=== PATIENT | female | born 1970 | race Caucasian/White ===

== ENCOUNTER 2019-04-10 14:53 | Observation (INO) ==
[2019-04-10 17:25] LABS: Basophils % 0.3 %; Immature Granulocytes % 0.5 % (0-4); Red Cell Distribution Width 18.3 % (11.5-14.5)
[2019-04-10 17:27] LABS: Eosinophils # 0.1 K/mcL (0.0-0.6); Eosinophils % 0.8 %; Hematocrit 33.8 % (35.3-44.9); Hemoglobin 9.4 g/dL (11.5-15.4); Lymphocytes # 0.8 K/mcL (0.6-4.6); Lymphocytes % 11.6 %; Mean Corpuscular HGB Conc 27.8 g/dL (31.6-35.5); Mean Corpuscular Hemoglobin 21.8 pg (28.0-33.3); Mean Corpuscular Volume 78.4 fL (83.0-100.0); Mean Platelet Volume 10.3 fL (9.4-12.4); Monocytes # 0.5 K/mcL (0.0-1.3); Monocytes % 7.1 %; Neutrophils # 5.2 K/mcL (1.6-8.9); Platelet Count 191 K/mcL (140-400); Red Blood Count 4.31 M/mcL (3.82-4.97); Segmented Neutrophils % 79.7 %; White Blood Count 6.5 K/mcL (4.3-11.1)
[2019-04-10 17:40] LABS: BUN/Creatinine Ratio 18 (6-26); Blood Urea Nitrogen 14 mg/dL (6-20); Calcium 9.3 mg/dL (8.6-10.3); Carbon Dioxide 21 mEq/L (23-29); Chloride 110 mEq/L (98-107); Glucose 302 mg/dL (70-105); Osmolality,Calculated 300 (280-300); Potassium 4.8 mEq/L (3.5-5.1); Sodium 139 mEq/L (136-145); eGFR For African Americans > 60 (> 60); eGFR For Non-African Americans > 60 (> 60)
[2019-04-10] MEDS ORDERED: Piperacillin/Tazobactam 3.375 GM in 0.9 % Sodium Chloride Mini Bag 100 ML IVPB ONE (19:42)
[2019-04-10] MEDS ORDERED: *HR* HYDROcodone/Acet 5/325 mg TABLET PO ONE (20:12)
[2019-04-10 21:22] LABS: C-Reactive Protein 19 mg/L (Less than 10)
[2019-04-11] MEDS ORDERED: Ondansetron ODT 4 MG TAB.RAPDIS SL PRN (00:22)
[2019-04-11] MEDS: traZODone 50 MG TABLET PO SCH ×2 (01:21→21:04)
[2019-04-11] MEDS: ALPRAZolam 0.5 MG TABLET PO SCH ×4 (01:21→21:05)
[2019-04-11] MEDS: BuPROPion SR (12 HR) 100 MG TABLET PO SCH ×3 (01:21→21:05)
[2019-04-11] MEDS ORDERED: Dextrose Gel 15 GM/37.5 ML TUBE PO PRN ×2 (01:36)
[2019-04-11] MEDS ORDERED: Albuterol 2.5 MG/3 ML NEBULIZER IH PRN (01:36)
[2019-04-11] MEDS ORDERED: D5% in Water 1,000 ML IVC PRN (01:36)
[2019-04-11] MEDS ORDERED: *HR* Dextrose 50 % in Water (Syg) 50 ML SYRINGE IVP PRN (01:36)
[2019-04-11] MEDS ORDERED: Naloxone 0.4 MG/ML INJ IVP PRN (01:36)
[2019-04-11] MEDS ORDERED: MethylPREDNISolone 40 MG/ML VIAL IVP ONE (01:38)
[2019-04-11 02:40] LABS: Immature Granulocytes % 0.3 % (0-4)
[2019-04-11 02:41] LABS: Hematocrit 34.9 % (35.3-44.9); Hemoglobin 9.5 g/dL (11.5-15.4); Lymphocytes # 0.2 K/mcL (0.6-4.6); Lymphocytes % 4.7 %; Mean Corpuscular HGB Conc 27.2 g/dL (31.6-35.5); Mean Corpuscular Hemoglobin 22.2 pg (28.0-33.3); Mean Corpuscular Volume 81.5 fL (83.0-100.0); Mean Platelet Volume 9.5 fL (9.4-12.4); Monocytes # 0.1 K/mcL (0.0-1.3); Monocytes % 2.6 %; Neutrophils # 3.1 K/mcL (1.6-8.9); Nucleated Red Blood Cells 0.6 /100 WBC (0); Platelet Count 167 K/mcL (140-400); Red Blood Count 4.28 M/mcL (3.82-4.97); Red Cell Distribution Width 18.4 % (11.5-14.5); Segmented Neutrophils % 92.4 %; White Blood Count 3.4 K/mcL (4.3-11.1)
[2019-04-11 02:48] LABS: INR 1.1; Prothrombin Time 12.2 Seconds (9.4-12.1)
[2019-04-11 03:03] LABS: % Iron Saturation 8 % (15-50); Alanine Aminotransferase 21 Units/L (7-52); Albumin/Globulin Ratio 1.4 (1.1-2.2); Alkaline Phosphatase 79 Units/L (34-104); Aspartate Amino Transferase 17 Units/L (13-39); BUN/Creatinine Ratio 17 (6-26); Bilirubin,Total 0.6 mg/dL (0.3-1.0); Blood Urea Nitrogen 14 mg/dL (6-20); Calcium 9.3 mg/dL (8.6-10.3); Carbon Dioxide 22 mEq/L (23-29); Chloride 110 mEq/L (98-107); Chol/HDL Ratio 2.7 (0-4.9); Cholesterol 105 mg/dL (< 200); Globulin 2.9 g/dL (2.4-3.5); Glucose 161 mg/dL (70-105); HDL Cholesterol 39 mg/dL (40-59); Iron 41 mcg/dL (50-170); LDL Cholesterol,Calculated 26 mg/dL (0-99); Osmolality,Calculated 296 (280-300); Potassium 4.2 mEq/L (3.5-5.1); Sodium 141 mEq/L (136-145); Total Protein 6.9 g/dL (6.4-8.9); Transferrin 357 mg/dL (203-362); Triglycerides 202 mg/dL (< 150); eGFR For African Americans > 60 (> 60); eGFR For Non-African Americans > 60 (> 60)
[2019-04-11 03:18] LABS: Ferritin 17 ng/mL (10-120)
[2019-04-11] MEDS: Ipratropium/Albuterol Neb 3 ML IH SCH ×5 (03:20→22:46)
[2019-04-11 03:36] LABS: Platelet Estimate Normal (Normal)
[2019-04-11 04:39] LABS: ABG Base Excess -4 mEq/L (-2 to 3); ABG HCO3 21 mEq/L (21-27); ABG Oxygen Saturation 98 % (95-98); ABG PCO2 38 mmHg (35-45); ABG PH 7.36 pH Units (7.32-7.45); ABG PO2 102 mmHg (85-104); ABG TCO2 22 mEq/L (20-26)
[2019-04-11] MEDS: Acetaminophen 325 MG TABLET PO PRN (06:47)
[2019-04-11 08:49] LABS: Estimated Average Glucose 258 mg/dl
[2019-04-11] MEDS: predniSONE 20 MG TABLET PO SCH (09:13)
[2019-04-11] MEDS: Insulin LISPRO 300 UNITS/3 ML VIAL SQ SCH ×3 (09:13→17:08)
[2019-04-11] MEDS: Nicotine 14 MG PATCH.TD24 TD SCH (09:14)
[2019-04-11 13:07] LABS: Bilirubin,Urine Small (Negative); Blood,Urine Negative (Negative); Clarity,Urine Cloudy (Clear); Color,Urine Yellow (Yellow); Glucose,Urine (UA) 500 mg/dL (Normal); Ketones,Urine Negative (Negative); Leukocyte Esterase,Urine Negative (Negative); Nitrite,Urine Negative (Negative); PH,Urine 5.5 pH Units (5.0-8.0); Protein,Urine Negative (Neg-Trace); Specific Gravity,Urine 1.027 (1.010-1.025); Urobilinogen,Urine Normal (Normal)
[2019-04-11 13:09] LABS: Bacteria,Urine None Seen per hpf (None-Few); Hyaline Casts,Urine Few per lpf (None-Few); Squamous Epithelial Cell,Urine Many per lpf (None-Few); WBC,Urine 0-3 per hpf (0-3)
[2019-04-12] MEDS: Acetaminophen 325 MG TABLET PO PRN (02:24)
[2019-04-12] MEDS: Ipratropium/Albuterol Neb 3 ML IH SCH ×2 (03:57→11:06)
[2019-04-12 05:54] LABS: Adenovirus Not Detected (Not Detect); Bordetella Pertussis Not Detected (Not Detect); Chlamydophila pneumoniae Not Detected (Not Detect); Coronavirus 229E Not Detected (Not Detect); Coronavirus HKU1 Not Detected (Not Detect); Coronavirus NL63 Not Detected (Not Detect); Coronavirus OC43 Not Detected (Not Detect); Human Metapneumovirus Not Detected (Not Detect); Human Rhinovirus/Enterovirus Not Detected (Not Detect); Influenza A Subtype 2009 H1 Not Detected (Not Detect); Influenza B Not Detected (Not Detect); Mycoplasma pneumoniae Not Detected (Not Detect); Parainfluenza Virus 1 Not Detected (Not Detect); Parainfluenza Virus 2 Not Detected (Not Detect); Parainfluenza Virus 3 Not Detected (Not Detect); Parainfluenza Virus 4 Not Detected (Not Detect); Respiratory Syncytial Virus Not Detected (Not Detect)
[2019-04-12] MEDS ORDERED: Piperacillin/Tazobactam 3.375 GM in 0.9 % Sodium Chloride Mini Bag 100 ML IVPB SCH ×2 (08:41→16:00)
[2019-04-12] MEDS: ALPRAZolam 0.5 MG TABLET PO SCH (09:47)
[2019-04-12] MEDS: predniSONE 20 MG TABLET PO SCH (09:48)
[2019-04-12] MEDS: BuPROPion SR (12 HR) 100 MG TABLET PO SCH (09:48)
[2019-04-12] MEDS: Nicotine 14 MG PATCH.TD24 TD SCH (09:48)
[2019-04-12] MEDS: Insulin LISPRO 300 UNITS/3 ML VIAL SQ SCH ×2 (09:55→12:41)
[2019-04-12] MEDS ORDERED: Albuterol 2.5 MG/3 ML NEBULIZER ONE (11:03)
[2019-04-12 11:48] VITALS: BP 153/67
[2019-04-12] MEDS ORDERED: Aminoglycoside Consult 1 EACH MC ONE (14:34)
== END 2019-04-12 14:35 | disposition home or self-care (01) ==
LOC: EMEROOARM 14:53 → CDU 14:53 → SUATTDRO 21:30 → CDU 22:19
PROVIDERS: ADMIT Internal Medicine; ATTEND Pharmacist